=== PATIENT | male | born 1980 | race American Indian/Alaskan Native ===

== ENCOUNTER 2019-06-22 16:07 | Emergency (ER) | payer BC ==
[2019-06-22] MEDS ORDERED: ASPIRIN PO ONE (16:51)
--- NOTE | 2019-06-22 16:52 | Event Note ---
ED Screening Note Date of service: 06/22/19 Time: 16:50 ED Screening Note: This is a 38 y.o. M. that presents to the ER with substernal chest pain and vomiting for 3 days. This initial assessment/diagnostic orders/clinical plan/treatment(s) is/are subject to change based on patients health status, clinical progression and re- assessment by fellow clinical providers in the ED. Further treatment and workup at subsequent clinical providers discretion. Patient/guardian urged not to elope from the ED as their condition may be serious if not clinically assessed and managed. Initial orders include: Labs, EKG, & CXR
[2019-06-22 16:57] VITALS: BP 156/107
[2019-06-22 18:03] LABS: Basophils # (Auto) 0.1 K/mm3 (0.0-0.1); Basophils % (Auto) 0.6 % (0.0-1.8); Eosinophils # (Auto) 0.1 K/mm3 (0.0-0.4); Eosinophils % (Auto) 0.3 % (0.0-4.3); Hematocrit 48.7 % (35.5-45.6); Hemoglobin 15.9 gm/dl (11.8-15.2); Lymphocytes # (Auto) 4.3 K/mm3 (1.2-5.4); Lymphocytes % (Auto) 24.1 % (13.4-35.0); Mean Corpuscular HGB Conc 33 % (32-34); Mean Corpuscular Volume 84 fl (84-94); Monocytes # (Auto) 1.4 K/mm3 (0.0-0.8); Monocytes % (Auto) 7.8 % (0.0-7.3); Platelet Count 259 K/mm3 (140-440); Red Blood Count 5.83 M/mm3 (3.65-5.03); Red Cell Distribution Width 14.6 % (13.2-15.2)
[2019-06-22 18:22] LABS: BUN/Creatinine Ratio 11; Blood Urea Nitrogen 12 mg/dL (9-20); Hemolysis Index 215
[2019-06-22] MEDS ORDERED: NACL 0.9% 1000 ML 1,000 ML IV ONE (20:34)
[2019-06-22] MEDS ORDERED: ZOFRAN IV ONE (20:34)
--- NOTE | 2019-06-22 21:32 | Ultrasound Report ---
LIMITED RUQ ABDOMINAL ULTRASOUND INDICATION: ruq pain and tenderness. COMPARISON: No relevant prior imaging study available. FINDINGS: Pancreas: Visualized portions show no significant abnormality. Abdominal Aorta: No significant abnormality. IVC: No significant abnormality. Liver: The liver measures 17.5 cm in length. Liver appears mildly echogenic in relation to the right renal cortex.. Normal hepatopedal blood flow in the main portal vein. Gallbladder: No significant abnormality. Bile ducts: No significant abnormality. Common bile duct measures 4 mm. Right kidney: No significant abnormality visualized.. Free fluid: None. Additional Findings: None. IMPRESSION: 1. Hepatomegaly with mildly echogenic liver, most commonly seen with steatosis. Signer Name: Vini Camp MD Signed: 06/22/2019 9:27 PM Workstation Name: [id number]
--- NOTE | 2019-06-22 22:26 | Emergency Department Report ---
ED General Adult HPI - General Chief complaint: Chest Pain Stated complaint: CHEST PAIN/VOMIT/NO BOWEL FLOW Time Seen by Provider: 06/22/19 16:50 Source: patient Mode of arrival: Ambulatory Limitations: No Limitations - History of Present Illness Initial comments: 38-year-old -[place]aced[place] male presents to the emergency room complaining of chest pain, nausea vomiting for 3-4 days a chest congestion and change of bowel habits. Patient admits to epigastric abdominal pain, cough, chest congestion and decreased appetite and decreased bowel movement. Patient denies any nausea vomiting fever or chills. Patient has had no surgeries no past medical history currently takes no medications on a daily basis. Onset/Timin -: days(s) Location: chest, abdomen Severity scale (0 -10): 8 Quality: aching Consistency: intermittent Associated Symptoms: cough, loss of appetite. denies: diaphoresis, fever/chills, nausea/vomiting - Related Data Home Medications Medication Instructions Recorded Confirmed Last Taken HYDROcodone/ACETAMINOPHEN 08/31/15 08/31/15 Unknown Oxycodone HCl 08/31/15 08/31/15 Unknown Previous Rx's Medication Instructions Recorded Last Taken Type Cyclobenzaprine [Flexeril] 10 mg PO TID PRN #30 tablet 08/31/15 Unknown Rx Ibuprofen [Motrin] 600 mg PO Q8H PRN #40 tablet 08/31/15 Unknown Rx traMADol [Ultram] 50 mg PO Q6HR PRN #20 tablet 09/01/15 Unknown Rx Azithromycin [Zithromax Tri-Arden] 500 mg PO QDAY 3 Days #3 tablet 06/22/19 Unknown Rx Allergies Allergy/AdvReac Type Severity Reaction Status Date / Time No Known Allergies Allergy Verified 06/22/19 16:54 ED Review of Systems ROS: Stated complaint: CHEST PAIN/VOMIT/NO BOWEL FLOW Other details as noted in HPI Comment: All other systems reviewed and negative Constitutional: denies: chills, fever Respiratory: cough, other (chest congestion) Cardiovascular: chest pain Endocrine: no symptoms reported Gastrointestinal: denies: abdominal pain, nausea, diarrhea Genitourinary: denies: urgency, dysuria Musculoskeletal: denies: back pain, joint swelling, arthralgia Skin: denies: rash, lesions Neurological: denies: headache, weakness, paresthesias Psychiatric: denies: anxiety, depression ED Past Medical Hx - Past Medical History Previous Medical History?: Yes Additional medical history: CHRONIC BACK PAIN - Surgical History Past Surgical History?: No - Social History Smoking Status: Current Every Day Smoker Substance Use Type: Alcohol - Medications Home Medications: Home Medications Medication Instructions Recorded Confirmed Last Taken Type Cyclobenzaprine [Flexeril] 10 mg PO TID PRN #30 tablet 08/31/15 Unknown Rx HYDROcodone/ACETAMINOPHEN 08/31/15 08/31/15 Unknown History Ibuprofen [Motrin] 600 mg PO Q8H PRN #40 tablet 08/31/15 Unknown Rx Oxycodone HCl 08/31/15 08/31/15 Unknown History traMADol [Ultram] 50 mg PO Q6HR PRN #20 tablet 09/01/15 Unknown Rx Azithromycin [Zithromax Tri-Arden] 500 mg PO QDAY 3 Days #3 tablet 06/22/19 Unknown Rx ED Physical Exam - General Limitations: No Limitations General appearance: alert, in no apparent distress - Head Head exam: Present: atraumatic, normocephalic - Eye Eye exam: Present: normal appearance - ENT ENT exam: Present: mucous membranes moist - Respiratory Respiratory exam: Present: decreased breath sounds (lll) - Cardiovascular Cardiovascular Exam: Present: tachycardia - GI/Abdominal GI/Abdominal exam: Present: soft, tenderness (ruq), normal bowel sounds - Extremities Exam Extremities exam: Present: normal inspection - Back Exam Back exam: Present: normal inspection - Neurological Exam Neurological exam: Present: alert, oriented X3, normal gait - Psychiatric Psychiatric exam: Present: normal affect, normal mood - Skin Skin exam: Present: warm, dry, intact, normal color. Absent: rash ED Course Vital Signs 06/22/19 16:55 Temperature 98.5 F Pulse Rate 108 H Respiratory 16 Rate Blood Pressure 156/107 O2 Sat by Pulse 95 Oximetry ED Medical Decision Making - Lab Data Result diagrams: 06/22/19 Unknown 06/22/19 Unknown - Radiology Data Radiology results: report reviewed Patient: EDISON GRAF MR#: [id number] : 1980 Acct:[id number] Age/Sex: 38 / M ADM Date: 06/22/19 Loc: ED Attending Dr: Ordering Physician: GUILLERMO MORSE Date of Service: 09/14/19 Procedure(s): US abdomen limited Accession Number(s): [id number] cc: GUILLERMO MORSE LIMITED RUQ ABDOMINAL ULTRASOUND INDICATION: ruq pain and tenderness. COMPARISON: No relevant prior imaging study available. FINDINGS: Pancreas: Visualized portions show no significant abnormality. Abdominal Aorta: No significant abnormality. IVC: No significant abnormality. Liver: The liver measures 17.5 cm in length. Liver appears mildly echogenic in relation to the right renal cortex.. Normal hepatopedal blood flow in the main portal vein. Gallbladder: No significant abnormality. Bile ducts: No significant abnormality. Common bile duct measures 4 mm. Right kidney: No significant abnormality visualized.. Free fluid: None. Additional Findings: None. IMPRESSION: 1. Hepatomegaly with mildly echogenic liver, most commonly seen with steatosis. Signer Name: Vini Camp MD Signed: 06/22/2019 9:27 PM Workstation Name: [id number] Transcribed By: TATYANA Dictated By: Vini Camp MD Electronically Authenticated By: Vini Camp MD Signed Date/Time: 06/22/192126 DD/ 25 TD/TT: - Medical Decision Making 38-year-old -[place]aced[place] male presents to the emergency room complaining of chest pain, nausea vomiting for 3-4 days a chest congestion and change of bowel habits. Patient admits to epigastric abdominal pain, cough, chest congestion and decreased appetite and decreased bowel movement. Patient denies any nausea vomiting fever or chills. Patient has had no surgeries no past medical history currently takes no medications on a daily basis. Ultrasound abdomen shows no acute abnormalities 6. Appears to have a left lower lung pneumonia treat patient with azithromycin Critical care attestation.: If time is entered above; I have spent that time in minutes in the direct care of this critically ill patient, excluding procedure time. ED Disposition Clinical Impression: Pneumonia Qualifiers: Pneumonia type: due to unspecified organism Laterality: left Lung location: lower lobe of lung Qualified Code(s): J18.1 - Lobar pneumonia, unspecified organism Disposition: - TO HOME OR SELFCARE Is pt being admited?: No Does the pt Need Aspirin: No Condition: Stable Instructions: Bacterial Pneumonia (ED), Community-acquired Pneumonia (ED) Prescriptions: Azithromycin [Zithromax Tri-Arden] 500 mg PO QDAY 3 Days #3 tablet Forms: Work/School Release Form(ED)
[2019-06-22 23:19] LABS: Bacteria,Urine 2+ /HPF (Negative); Bilirubin,Urine SM (Negative); Blood,Urine MOD (Negative); Color,Urine Amber (Yellow); Mucus,Urine 3+ /HPF
[2019-06-22 23:28] LABS: Protein,Urine >500 mg/dL (Negative)
[2019-06-22 23:29] LABS: Ictotest,Urine Negative (Negative)
--- NOTE | 2019-06-23 11:19 | XRay Report ---
CHEST 1 VIEW INDICATION: Chest Pain. COMPARISON: None. FINDINGS: Support devices: None. Heart: Normal. Lungs/Pleura: Streaky bibasilar opacities are likely due to atelectasis. Lungs are otherwise clear. N o pleural abnormality. IMPRESSION: 1. No acute findings. Signer Name: Dajuan Nguyễn MD Signed: 06/23/2019 11:14 AM Workstation Name: [id number]
== END 2019-06-22 23:15 | disposition home or self-care (01) ==
LOC: ED 16:07
DX: J18.9 Pneumonia, unspecified organism (principal); F17.200 Nicotine dependence, unspecified, uncomplicated; G89.29 Other chronic pain; Z79.899 Other long term (current) drug therapy
CPT/HCPCS: 36415; 71045; 76705; 80048; 81001; 84484; 85025; 87086; 93005; 93010; 96361; 96374; 99285; J2405; J7030